=== PATIENT | male | born 1940 | race Two or more races ===

== ENCOUNTER 2017-07-16 20:02 | Inpatient (IN) | payer MEDICAID, MEDICARE, OTHER ==
[~2017-07-16] VITALS: Ht 157.5 cm; Wt 74.8 kg
--- NOTE | 2017-07-16 20:07 | NUR ---
PT RECEIVED FROM [facility] C/O ABDOMINAL PAIN X15 DAYS RADIATING TO BILATERAL SHOULDERS. NO SOB NOTED AT THIS TIME. A/O X3 ARMENINA SPEAKING WIHT FAMILY AT BEDSIDE
[2017-07-16] MEDS ORDERED: HYDROMORPHONE INJ 2 MG/ML DISP.SYRIN ONE ×2 (20:21→23:05)
[2017-07-16] MEDS ORDERED: ONDANSETRON HCL/PF 4 MG/2 ML VIAL ONE (20:21)
[2017-07-16 20:24] LABS: BASOPHILS # (AUTO) 0.2 /CMM (0.0-0.2); BASOPHILS % (AUTO) 1.8 % (0.0-2.0); EOSINOPHILS # (AUTO) 0.1 /CMM (0.0-0.7); EOSINOPHILS % (AUTO) 1.2 % (0.0-6.0); HEMATOCRIT 47 % (39-51); LYMPHOCYTES % (AUTO) 33.5 % (20.0-44.0); MEAN CORPUSCULAR HEMOGLOBIN 32 PG (26.0-33.0); MEAN CORPUSCULAR HGB CONC 34 g/dl (31.0-36.0); MEAN CORPUSCULAR VOLUME 95 fL (80-96); MONOCYTES # (AUTO) 0.5 /CMM (0.1-1.30); MONOCYTES % (AUTO) 5.8 % (2.0-12.0); NEUTROPHILS # (AUTO) 5.1 /CMM (1.8-8.9); NEUTROPHILS % (AUTO) 57.7 % (43.0-81.0); PLATELET COUNT (AUTO) 269 /CMM (150-450); RDW COEFFICIENT OF VARIATION 12.4 (11.5-15.0); RED BLOOD CELL COUNT(AUTO) 4.98 MIL/uL (4.5-6.0); WHITE BLOOD COUNT (AUTO) 8.9 K/uL (4.3-11.0)
[2017-07-16 20:29] LABS: CALCIUM, SERUM 9.4 mg/dL (8.5-10.1); CARBON DIOXIDE 25 mmol/L (21-32); CHLORIDE 102 mmol/L (98-107); CREATININE 1.1 mg/dL (0.6-1.3); GLUCOSE 99 mg/dL (74-106); SODIUM SERUM 137 mmol/L (136-145); UREA NITROGEN, BLOOD 13 mg/dL (7-18)
[2017-07-16] MEDS ORDERED: HYDROMORPHONE INJ 2 MG/ML DISP.SYRIN IV ONE (20:30)
[2017-07-16] MEDS ORDERED: IV NS 0.9% 1,000 ML BAG IV ONE (20:30)
[2017-07-16] MEDS ORDERED: ONDANSETRON HCL/PF 4 MG/2 ML VIAL IVP ONE (20:30)
--- NOTE | 2017-07-16 20:33 | NUR ---
CHEST XRAY AT BEDSIDE
[2017-07-16 20:35] LABS: ALANINE AMINOTRANSFERASE 27 U/L (12-78); ALBUMIN 3.9 g/dL (3.4-5.0); ALKALINE PHOSPHATASE 83 U/L (46-116); ASPARTATE AMINOTRANSFERASE 18 U/L (15-37); BILIRUBIN,DIRECT 0.1 mg/dL (0.0-0.2); BILIRUBIN,TOTAL 0.5 mg/dL (0.2-1.0); LIPASE 104 U/L (73-393); TOTAL PROTEIN, SERUM 7.8 g/dL (6.4-8.2)
[2017-07-16 20:37] LABS: TROPONIN I 0.066 ng/mL (0.00-0.056)
--- NOTE | 2017-07-16 20:51 | NUR ---
PT OFF TO CT SCAN
--- NOTE | 2017-07-16 21:00 | NUR ---
PT BACK FROM CT SCAN
--- NOTE | 2017-07-16 21:18 | NUR ---
CALLING DR. CARVALHO FOR DR. SANDRA RE: ADMISSION.
[2017-07-16] MEDS ORDERED: ASPIRIN 325 MG TABLET PO ONE (21:30)
[2017-07-16] MEDS ORDERED: ASPIRIN 325 MG TABLET ONE (21:47)
[2017-07-16 22:15] LABS: BILIRUBIN,URINE NEGATIVE (NEGATIVE); BLOOD, URINE NEGATIVE Ery/uL (NEGATIVE); COLOR,URINE YELLOW (YELLOW); KETONES,URINE 1+ (NEGATIVE); LEUKOCYTE ESTERASE ,URINE 1+ (NEGATIVE); NITRITE, URINE NEGATIVE (NEGATIVE); PROTEIN,URINE NEGATIVE (NEGATIVE); UGLUCOSE NEGATIVE (NEGATIVE); UROBILINOGEN,URINE 0.2 EU/dL (0.2)
--- NOTE | 2017-07-16 22:15 | NUR ---
RECIEVED MR. Mcgovern FROM THE ER VIA [facility]. aBLE TO WALK TO HIS ASSIGNED BED 321-1, WITH A STEADY GAIT AND NO SEEN sob. sKIN WARM AND DRY, ALERT AND ORIENTATED X4. CROATIAN SPEAKING WITH SOME UNDERSTANDING OF [place] WELL HE IS ABLE TO COMMUNICATE WITH SOME [place]. gOOD EYE CONTACT. STATES HIS LAST BM WAS TODAY NO PROBLEM, LAST VOIDED IN THE ER AND A SPECIMEN WAS SENT. URINAL AT THE BEDSIDE, WITH AN EXPLANATION TO THE PATIENT. SPOUSE AND 2 SONS ARE AT THE BEDSIDE. DEONNA 'S NUMBER IS [phone]. BEDALARM BEING USED FOR SAFETY. MRSA SWAB DONE. UPON ARRIVAL PATIENT STATED HIS ABD WAS HURTING iv DILAUDID GIVEN AND EFFECTIVE, MR. MCGOVERN WAS ABLE TO DRIFT OFF TO SLEEP.wILL MONITOPR HIS CARDIAC RHYTHM ON THE MONITOE...AT THIS TIME NSR [id number]
[2017-07-16 22:17] LABS: APPEARANCE,URINE SLIGHTLY CLOUDY (CLEAR)
[2017-07-16 22:23] LABS: BACTERIA,URINE Rare /HPF (None Seen); RBC,URINE 0-2 /HPF (0-2); SQUAMOUS EPITHELIAL CELL,UR Rare /HPF (None Seen)
[2017-07-16] MEDS ORDERED: ATORVASTATIN 40 MG TABLET ONE (22:49)
[2017-07-16] MEDS ORDERED: TAMSULOSIN 0.4 MG CAP.SR.24H ONE (22:50)
[2017-07-16] MEDS ORDERED: PANTOPRAZOLE 40 MG VIAL ONE (22:51)
[2017-07-16] MEDS ORDERED: [UNRECOGNIZED DRUG - OTHER] IV ONE (22:54)
[2017-07-16] MEDS ORDERED: D5 IV ONE (22:54)
[2017-07-16] MEDS ORDERED: KCL IV ONE (22:54)
[2017-07-16] MEDS ORDERED: HYDROMORPHONE 1 MG/1 ML DISP.SYRIN IV PRN ×2 (23:00→23:30)
[2017-07-16] MEDS: Potassium Chloride 20 MEQ in IV D5/0.45 NACL 1,000 ML IV SCH (23:21)
[2017-07-16] MEDS: PANTOPRAZOLE 40 MG VIAL IV SCH (23:26)
[2017-07-17] VITALS: BP 104/68
[2017-07-17 00:49] VITALS: BP 122/85
[2017-07-17 00:53] VITALS: BP 104/68
[2017-07-17 04:00] VITALS: BP 92/62
--- NOTE | 2017-07-17 06:40 | NUR ---
ENDING NOTES: SLEPT THROUGH THE NIGHT AFTER BEING GIVEN DILAUDID 1 MG FOR LOWER ABD PAIN. SKIN STAYED WARM AND DRY,NO NAUSEA. WAS EASILY AWAKENED WHEN NAME CALLED. mAIN SPOKEN LANGUAGE IS ARMINIAN BUT HAS SOME UNDERSTANDING OF [place]. OFFERED THE DILAUDID FOR PAIN AND HE SAID "i'M OKAY" MADE AWARE HE IS npo AND THE REASON. hE REAMAINS ALERT AND ORIENTATED X4. VOIDED IN THE URINAL 400ML THIS 12 HOURS, DARK H[place]Y IN COLOR. hEART MONITOR SHOWING NSR HEART RATE 72 - 80 PER MIN. pATIENT HAS A SUPPORTIVE SPOUSE AND 2 SONS ONE IS DEONNA [phone]
[2017-07-17 08:00] VITALS: BP 100/59
[2017-07-17 08:25] LABS: BASOPHILS % (AUTO) 0.3 % (0.0-2.0); EOSINOPHILS # (AUTO) 0.1 /CMM (0.0-0.7); EOSINOPHILS % (AUTO) 1.8 % (0.0-6.0); HEMATOCRIT 40 % (39-51); HEMOGLOBIN 13.5 g/dL (13.5-17.5); LYMPHOCYTES # (AUTO) 2.7 /CMM (0.8-4.8); LYMPHOCYTES % (AUTO) 34.6 % (20.0-44.0); MEAN CORPUSCULAR HEMOGLOBIN 33 PG (26.0-33.0); MEAN CORPUSCULAR HGB CONC 34 g/dl (31.0-36.0); MEAN CORPUSCULAR VOLUME 97 fL (80-96); MONOCYTES # (AUTO) 0.5 /CMM (0.1-1.30); MONOCYTES % (AUTO) 6.1 % (2.0-12.0); NEUTROPHILS # (AUTO) 4.5 /CMM (1.8-8.9); NEUTROPHILS % (AUTO) 57.2 % (43.0-81.0); PLATELET COUNT (AUTO) 197 /CMM (150-450); RDW COEFFICIENT OF VARIATION 13.3 (11.5-15.0); RED BLOOD CELL COUNT(AUTO) 4.16 MIL/uL (4.5-6.0); WHITE BLOOD COUNT (AUTO) 7.9 K/uL (4.3-11.0)
[2017-07-17] MEDS ORDERED: MONT10TA22 PO (08:27)
[2017-07-17] MEDS ORDERED: HYDR-4076 PO (08:27)
[2017-07-17] MEDS ORDERED: TRAM50TA2 PO (08:27)
[2017-07-17] MEDS ORDERED: GABA-534 PO (08:27)
[2017-07-17] MEDS ORDERED: THEO400T PO (08:27)
[2017-07-17] MEDS ORDERED: MECL-102 PO (08:27)
[2017-07-17] MEDS ORDERED: ASPI81TA35 PO (08:27)
[2017-07-17] MEDS ORDERED: BENA20TA2 PO (08:27)
[2017-07-17] MEDS ORDERED: DONE10TA44 PO (08:27)
[2017-07-17] MEDS ORDERED: NAPR500T4 PO (08:27)
[2017-07-17] MEDS ORDERED: TAMS0.4C34 PO (08:27)
[2017-07-17] MEDS ORDERED: BACL10TA PO (08:27)
[2017-07-17] MEDS ORDERED: SERT50TA12 PO (08:27)
[2017-07-17] MEDS ORDERED: AMLO10TA2 PO (08:27)
[2017-07-17] MEDS ORDERED: OMEG-167 PO (08:27)
[2017-07-17] MEDS ORDERED: FLUT1BLS IH (08:27)
[2017-07-17] MEDS ORDERED: FOLI1TAB16 PO (08:27)
[2017-07-17] MEDS ORDERED: ATEN50TA PO (08:27)
[2017-07-17] MEDS ORDERED: PANT20TA3 PO (08:27)
[2017-07-17] MEDS ORDERED: TRAZ-147 PO (08:27)
[2017-07-17] MEDS: Potassium Chloride 20 MEQ in IV D5/0.45 NACL 1,000 ML IV SCH (08:46)
[2017-07-17] MEDS: PANTOPRAZOLE 40 MG VIAL IV SCH (08:46)
[2017-07-17 09:11] LABS: TROPONIN I 0.157 ng/mL (0.00-0.056)
[2017-07-17 09:15] LABS: CHOLESTEROL 194 mg/dL (<200); HDL CHOLESTEROL 33 mg/dL (40-60); LDL 137 mg/dL (0-99); TRIGLYCERIDES 108 mg/dL (30-150)
[2017-07-17 09:22] LABS: ALANINE AMINOTRANSFERASE 27 U/L (12-78); ALBUMIN 2.9 g/dL (3.4-5.0); ALKALINE PHOSPHATASE 66 U/L (46-116); ASPARTATE AMINOTRANSFERASE 15 U/L (15-37); BILIRUBIN,TOTAL 0.6 mg/dL (0.2-1.0); CALCIUM, SERUM 8.3 mg/dL (8.5-10.1); CARBON DIOXIDE 27 mmol/L (21-32); CHLORIDE 106 mmol/L (98-107); CREATININE 1.1 mg/dL (0.6-1.3); GLUCOSE 95 mg/dL (74-106); LIPASE 82 U/L (73-393); POTASSIUM 4.2 mmol/L (3.5-5.1); SODIUM SERUM 139 mmol/L (136-145); TOTAL PROTEIN, SERUM 6.1 g/dL (6.4-8.2); UREA NITROGEN, BLOOD 10 mg/dL (7-18)
[2017-07-17] MEDS ORDERED: THEOPHYLLINE ANHYDROUS 400 MG PO SCH (09:30)
[2017-07-17] MEDS ORDERED: FLUTICASONE/VILANTEROL 1 EACH BLST.W.DEV IH SCH (09:30)
[2017-07-17] MEDS ORDERED: FOLIC ACID 1 MG TABLET PO SCH (09:30)
[2017-07-17] MEDS ORDERED: ASPIRIN EC 81 MG TABLET.DR PO SCH (09:30)
[2017-07-17] MEDS ORDERED: SERTRALINE HCL 50 MG TABLET PO SCH (09:30)
[2017-07-17] MEDS ORDERED: MONTELUKAST SODIUM (10MG) 10 MG TABLET PO SCH (09:30)
[2017-07-17] MEDS ORDERED: GABAPENTIN 300 MG CAPSULE PO SCH (09:30)
[2017-07-17] MEDS ORDERED: MECLIZINE HCL 25 MG TABLET PO PRN (09:30)
[2017-07-17] MEDS ORDERED: ATENOLOL 50 MG TABLET PO SCH (09:30)
[2017-07-17] MEDS ORDERED: Medication Not On Formulary EA (Donepezil Hcl 10 MG) PO SCH (09:30)
[2017-07-17] MEDS ORDERED: BACLOFEN (10 MG) 10 MG TABLET PO SCH (09:30)
[2017-07-17] MEDS ORDERED: HYDROCODONE/APAP 5/325MG 1 EACH TABLET PO PRN (10:00)
[2017-07-17] MEDS ORDERED: IPRATROPIUM NEB FS 0.5 MG/2.5 ML AMPUL.NEB NEB PRN (10:00)
[2017-07-17] MEDS ORDERED: ZOLPIDEM TARTRATE 5 MG TABLET PO PRN (10:00)
[2017-07-17] MEDS ORDERED: ONDANSETRON HCL/PF 4 MG/2 ML VIAL IVP PRN (10:00)
[2017-07-17] MEDS ORDERED: ACETAMINOPHEN 325 MG TABLET PO PRN (10:00)
[2017-07-17] MEDS ORDERED: IPRATROPIUM BROMIDE 14 GM INHALER (or 12.9 GM) IH PRN (10:00)
--- NOTE | 2017-07-17 11:20 | NUR ---
CALLED TO PT ROOM. PT STATES HE DOES NOT WANT TO BE TRANSFERRED TO [facility] FOR CARDIAC CATH. PT STATES HE WANTS TO LEAVE THE HOSPITAL AND GO TO HIS [employer]. WITH THE HELP OF AND CHILEAN SPEAKING NURSE, ROSA, EXPLAINED TO THE PATIENT ALL THE RISKS OR LEAVING THE HOSPITAL AT THIS TIME AND THE BENEFITS OF STAYING TO RECEIVE TREATMENT. PATIENT STATES FULL UNDERSTANDING, BUT REPEATS THAT HE WANTS TO LEAVE THE HOSPITAL TODAY. CALLED DR CARVALHO TO INFORM OF THE PATIENT DECISION. MD ASKS AGAIN TO TRY AND CONVINCE THE PATIENT TO STAY, BUT IF HE MUST GO TO MAKE SURE HE SEES AN MD TOADY. AGAIN SPOKE TO THE PATIENT AND RELAYED DR CARVALHO'S ADVICE. PATIENT STATES UNDERSTANDING AND THAT HE HAS JUST SPOKEN TO HIS MD, DR BEN FORREST , AND HE WILL BE GOING STRAIGHT TO THE MD'S OFFICE ONCE LEAVING THE HOSPITAL. PATIENT SIGNED AMA PAPERWORK AND ALL OTHER PAPERWORK. BELONGINGS ACCOUNTED FOR. IV DISCONNECTED AND PRESSURE APPLIED, NO BLEEDING NOTED AT THE SITE. PATIENT LEFT AMA IN STABLE CONDITION. NO SOB OR DISTRESS NOTED AT THIS TIME. PATIENT DENIES PAIN. PATIENT LEFT WALKING INDEPENDENTLY WITH AND DAUGHTER.
[2017-07-17] MEDS ORDERED: ATORVASTATIN 10 MG TABLET PO SCH ×2 (22:00)
[2017-07-17] MEDS ORDERED: TAMSULOSIN 0.4 MG CAP.SR.24H PO SCH (22:00)
== END 2017-07-17 11:20 | disposition left against medical advice (07) | DRG 281 ==
LOC: ER 20:05 → TELE 22:06
PROVIDERS: ADMIT Internal Medicine; ATTEND Internal Medicine
DX: I21.4 Non-ST elevation (NSTEMI) myocardial infarction (principal); N13.2 Hydronephrosis with renal and ureteral calculous obstruction; I11.0 Hypertensive heart disease with heart failure; I95.9 Hypotension, unspecified; J44.9 Chronic obstructive pulmonary disease, unspecified; I50.32 Chronic diastolic (congestive) heart failure; F17.210 Nicotine dependence, cigarettes, uncomplicated; N40.0 Benign prostatic hyperplasia without lower urinary tract symptoms; Z91.19 Patient's noncompliance with other medical treatment and regimen
CPT/HCPCS: 36415; 71010-TC; 80048-TC; 80053-TC; 80061-TC; 80076-TC; 81000-TC; 83690-TC; 84484-TC; 85025-TC; 87081-TC; 87086-TC; A4606; C9113; J1170; J2405; J3480; J3490; J7030; Z7610